=== PATIENT | female | born 1990 | race Two or more races ===

== ENCOUNTER 2016-09-19 04:25 | Inpatient (IN) | payer OTHER ==
[2016-09-19] MEDS: DEXTROSE 5%-LACTATED RINGERS 1,000 ML IV SCH (05:15)
[2016-09-19 05:29] LABS: BASOPHIL 0.4 % (0-2.0); EOSINOPHIL 0.5 % (0-4.5); MCH 28.4 pg (25.7-33.7); MCHC 32.9 g/dl (32.0-36.0); MEAN CELL VOLUME 86.3 fl (80-96); MEAN PLT VOLUME 9.1 fl (7.5-11.1); NEUTROPHILS 76.5 % (42.8-82.8); PLATELET COUNT 241 K/MM3 (134-434); RDW 14.5 % (11.6-15.6); WHITE BLOOD COUNT 13.8 K/mm3 (4.0-10.0)
[2016-09-19 05:41] VITALS: BMI 29.2
[2016-09-19 05:42] LABS: INR 0.95 (0.82-1.09); PROTHROMBIN TIME (PATIENT) 10.4 SEC (9.98-11.88)
[2016-09-19 05:45] LABS: ACTIVATED PTT 29.4 SECONDS (26.9-34.4)
[2016-09-19 05:48] LABS: CALCIUM 8.6 mg/dL (8.5-10.1); CREATININE 0.5 mg/dL (0.55-1.02)
[2016-09-19] MEDS ORDERED: PROMETHAZINE HCL 25 MG/1 ML VIAL IVPB ONE (06:00)
[2016-09-19] MEDS ORDERED: BUTORPHANOL TARTRATE 1 MG/ML VIAL IVPB ONE (06:00)
[2016-09-19 06:32] LABS: HIV 1 & 2 AB NEGATIVE; HIV 1 AGp24 NEGATIVE
[2016-09-19] MEDS ORDERED: OXYTOCIN 15 UNITS/ LR 250 ML 250 ML IVPB SCH (08:15)
--- NOTE | 2016-09-19 08:48 | HP ---
Past Medical History - Primary Care Physician PCP:: Rey Oviedo - Admission Chief Complaint: 25 yo P1 with at EGA 39w6d admitted with spontaneous early labor. 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: Alzheimer's, CVA, Dementia, Migraine, Multiple Sclerosis, Peripheral Neuropathy, Parkinson's, Seizure, Syncope, TIA, Vertigo, Other Cardiovascular: No: AFIB, Aneurysm, Aortic Insufficiency, Aortic Stenosis, CAD, CHF, Deep Vein Thrombosis, HTN, Hyperlipdemia, ME, Mitral Insufficiency, Mitral Stenosis, Murmur, Pulmonary Hypertension, Other Pulmonary: No: Asthma, Bronchitis, Cancer, COPD, O2 Dependent, Pneumonia, Previously Intubated, Pulmonary Embolus, Pulmonary Fibrosis, Sleep Apnea, Other Gastrointestinal: No: Ascites, Cancer, Constipation, Crohn's Disease, Diverticulitis, Diverticulosis, Esophageal Varices, Gastritis, GERD, GI Bleed, Hemorrhoids, Hiatal Hernia, Inflamatory Bowel Disease, Irritable Bowel Disease, Pancreatitis, Peptic Ulcer Disease, Ulcerative Colitis, Other Hepatobiliary: No: Cirrhosis, Cholelithiasis, Cholecystitis, Choledocholithiasis , Hepatitis A, Hepatitis B, Hepatitis C, Other Renal/: No: Renal Failure, Renal Inusuff, BPH, Cancer, Hematuria, Hemodialysis , Neurogenic Bladder, Renal Calculi, UTI, Other Reproductive: No: Ectopic , Endometriosis, Fibroids, PID, Polycystic Ovary Syndrome, Postmenopausal, Other ...: 2 ...Para: 1 ...Term: 1 ...: 0 ...Spon : 0 ...Induced : 0 ...Multiple Gestation: 0 ...LMP: 12/15/15 ... Weeks Gestation by Dates: 39.6 ...EDC by Dates: 09/20/16 Heme/Onc: No: Anemia, B12 Deficiency, Bleeding Disorder, Cancer, Current Chemotherapy, Current Radiation Therapy, Hemochromatosis, Hypercoaguable State, Myeloproliferative Synd, Sickle Cell Disease, Sickle Cell Trait, Thrombocytopenia, Other Infectious Disease: No: AIDS, C-Diff, Herpes Zoster, HIV, MRSA, STD's, Tuberculosis, VREF, Other Psych: No: Addictions, Anxiety, Bipolar, Depression, Panic, Psychosis, Schizophrenia, Other Musculoskeletal: No: Bursitis, Chronic low back pain, Hemiparesis, Hemiplegia, Osteoarthritis, Paraplegia, Other Rheumatology: No: Fibromyalgia, Gout, Lupus, Rheumatoid Arthritis, Sarcoidosis, Vasculitis, Other ENT: No: Allergic Rhinitis, Sinusitis, Other Endocrine: No: Ranjeet's Disease, Peng's Disease, Diabetes Insipidus, Diabetes Mellitus, Hyperparathyroidism, Hyperthyroidism, Hypothyroidism, Osteopenia, SIADH, Other Dermatology: No: Basal Cell, Cellulitis, Eczema, Melanoma, Psoriasis, Squamous Cell, Other - Past Surgical History Hx Myomectomy: No Hx Transabdominal Cerclage: No Additional Surgical History: Left breast fibroadenoma - Smoking History Smoking history: Never smoked Have you smoked in the past 12 months: No - Alcohol/Substance Use Hx Alcohol Use: No History of Substance Use: reports: None - Social History Usual Living Arrangement: Yes: With Spouse, With Child ADL: Independent History of Recent Travel: No Home Medications - Allergies Allergies/Adverse Reactions: Allergies Allergy/AdvReac Type Severity Reaction Status Date / Time No Known Allergies Allergy Verified 09/19/16 04:59 - Home Medications Home Medications: Ambulatory Orders Vitamins (Sjr) - 1 tab PO DAILY 09/19/16 Family Disease History - Family Disease History Family History: Unremarkable Review of Systems - Review of Systems Constitutional: reports: No Symptoms Eyes: reports: No Symptoms HENT: reports: No Symptoms Neck: reports: No Symptoms Cardiovascular: reports: No Symptoms Respiratory: reports: No Symptoms Gastrointestinal: reports: No Symptoms Genitourinary: reports: No Symptoms Breasts: reports: No Symptoms Reported Musculoskeletal: reports: No Symptoms Integumentary: reports: No Symptoms Neurological: reports: No Symptoms Endocrine: reports: No Symptoms Hematology/Lymphatic: reports: No Symptoms Psychiatric: reports: No Symptoms Pain Intensity: 5 Physical Exam - Maternity Vital Signs: Vital Signs Temperature 97.5 F L 09/19/16 08:00 Pulse Rate 79 09/19/16 08:00 Respiratory Rate 20 09/19/16 08:00 Blood Pressure 123/61 09/19/16 08:00 O2 Sat by Pulse Oximetry (%) Constitutional: Yes: Well Nourished, No Distress, Calm Eyes: Yes: WNL, Conjunctiva Clear HENT: Yes: WNL, Atraumatic, Normocephalic Neck: Yes: WNL, Supple, Trachea Midline Cardiovascular: Yes: WNL, Regular Rate and Rhythm Lungs: Clear to auscultation, Normal air movement Breast(s): Yes: WNL - Abdominal Exam/OB Fundal Height: 40 Number of Fetuses: Single Presentation: Vertex Contractions: Yes Regularity: Irregular Intensity: Mild/Mod Monitor Mode: External Heart Rate (range): 130 Heart Rate Location: Midline Category: I Accelerations: None (s/p Stadol) Decelerations: None - Vaginal Exam/OB Vaginal Bleediing: No Speculum Exam: No Dilatation (cm): 3 Effacement (%): 70 Amniotic Membrane Status: Intact Presentation: Vertex/Position Station: -2 (Adequate gynecoid pelvimetry) - Physical Exam Musculoskeletal: Yes: WNL Extremities: Yes: WNL Edema: No Integumentary: Yes: WNL Deep Tendon Reflex Grade: Normal +2 ...Motor Strength: WNL Psychiatric: Yes: WNL, Alert, Oriented - Labs Lab Results: CBC, BMP 09/19/16 05:10 09/19/16 05:10 Hemorrhage Risk Assessment - Risk Factors Medium Risk Factors: Yes: None High Risk Factors: Yes: None Risk Score: 1 Risk Level: Medium Risk Imaging - Results Ultrasound: Report Reviewed Assessment/Plan 25 yo P1 with at EGA 39w6d admitted with spontaneous early labor. Fetus requires no intervention. The pt is in spontaneous labor but with irregular contractions. The cervical dilation did not change since admission. Plan to start pitocin to augment contractions. The plan, risks, benefits, alternatives were discussed with the patient.
[2016-09-19] MEDS ORDERED: FENTANYL/BUPIVACAINE/NS/PF - PCEA - 50 ML DISP.SYRIN EP SCH (11:00)
--- NOTE | 2016-09-19 14:03 | PN ---
Ante-Partal Exam - Subjective Subjective: No complaints. FHR with several prolonged decels. Pt was given O2 mask. AROM was done with thick meconium noted. FSE placed, and pitocin turned off. Tried several different position changes. The pt is dilating quickly but now the FHR has minimal variability. Negative scalp stim. Vital Signs: Vital Signs Temperature 98.1 F 09/19/16 09:57 Pulse Rate 88 09/19/16 13:00 Respiratory Rate 20 09/19/16 13:00 Blood Pressure 114/57 09/19/16 13:00 O2 Sat by Pulse Oximetry (%) 100 09/19/16 13:00 Bleeding: No Headache: No Visual changes: No Right upper quadrant pain: No - Contractions Contractions: Yes Regularity: Regular Intensity: Unaware Monitor Mode: External - Exam during Labor Heart Rate: 145 Variability: Minimal Category: II Monitor Accelerations: Absent Monitor Decelerations: Variable (and early and prolonged) Exam: Vaginal Dilatation (cm): 7 Effacement (%): 90 Amniotic Membrane Status: Ruptured Amniotic Fluid: Meconium Stained Meconium Staining: Thick Presentation: Vertex Station: 0 - Intrapartum Hemorrhage Risk Medium Risk Factors: None High Risk Factors: None Risk Score: 0 Risk Level: Low Risk - Assessment/Plan Assessment/Plan: 25 yo P1 with non-reassuring FHT in active labor. I discussed the clinical situation with pt and decided to proceed with C/S. R, b, alt discussed.
[2016-09-19] MEDS ORDERED: IBUPROFEN 800 MG/8 ML IJ IVPB PRN (15:15)
[2016-09-19] MEDS ORDERED: METHYLERGONOVINE MALEATE 0.2 MG/1 ML AMP IM PRN (15:15)
[2016-09-19] MEDS ORDERED: ONDANSETRON 4 MG/2 ML VIAL IVPB PRN (15:27)
[2016-09-19] MEDS ORDERED: IBUPROFEN 600 MG TABLET (FP) PO PRN (15:27)
[2016-09-19] MEDS ORDERED: morphine SULFATE/Preservative Free 0.5 MG/ML (1cc Syringe) EP ONE (15:27)
--- NOTE | 2016-09-19 15:27 | PN ---
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
[2016-09-19 15:29] LABS: ARTERIAL BLD GAS O2 SATURATION 20.3 % (90-98.9); ARTERIAL BLOOD GAS HCO3 27.7 meq/L (22-26); ARTERIAL BLOOD GAS PO2 14.5 mmHg (80-100); ARTERIAL BLOOD GAS pH 7.32 (7.35-7.45)
[2016-09-19 15:30] LABS: ARTERIAL BLD GAS O2 SATURATION 71.1 % (90-98.9); ARTERIAL BLOOD GAS BASE EXCESS 0.6 meq/l (-2-2); ARTERIAL BLOOD GAS HCO3 25.5 meq/L (22-26); ARTERIAL BLOOD GAS pH 7.38 (7.35-7.45)
[2016-09-19 15:34] LABS: LPM/O2% 21%; PT. ON O2? NO; TYPE OF O2 ROOM AIR
[2016-09-19 15:36] LABS: ARTERIAL BLOOD GAS PO2 32.4 mmHg (80-100); LPM/O2% 21% ROOM AIR; PT. ON O2? NO
[2016-09-19] MEDS: OXYTOCIN 20 UNITS in 0.9% NS 1,000 ML IV SCH (16:19)
[2016-09-20] MEDS: OXYTOCIN 20 UNITS in 0.9% NS 1,000 ML IV SCH (00:04)
[2016-09-20] MEDS: IBUPROFEN 600 MG TABLET (FP) PO PRN ×3 (06:15→22:33)
[2016-09-20] MEDS: ACETAMINOPHEN 325 MG TABLET (FP) PO PRN ×3 (06:15→22:34)
[2016-09-20] MEDS: DEXTROSE 5%-LACTATED RINGERS 1,000 ML IV SCH (06:16)
[2016-09-20 08:24] LABS: BASOPHIL 0.2 % (0-2.0); EOSINOPHIL 0.1 % (0-4.5); MCH 28.8 pg (25.7-33.7); MEAN CELL VOLUME 87.1 fl (80-96); MEAN PLT VOLUME 8.6 fl (7.5-11.1); NEUTROPHILS 83.1 % (42.8-82.8); PLATELET COUNT 187 K/MM3 (134-434); RDW 14.2 % (11.6-15.6); WHITE BLOOD COUNT 17.4 K/mm3 (4.0-10.0)
[2016-09-20] MEDS: PRENATAL VITAMINS W/ FOLIC ACID TABLET (FP) PO SCH (09:12)
[2016-09-20] MEDS: ENOXAPARIN NA (PORCINE) 40 MG/0.4 ML DISP.SYRIN SQ SCH (09:13)
[2016-09-20] MEDS ORDERED: INFLUENZA VACCINE 45 MCG/0.5 ML (MDV 16-17) IM ONE (10:00)
[2016-09-20] MEDS ORDERED: INFLUENZA VACCINE 60 MCG/0.5 ML (P/F DISP.SYRIN 16-17) IM ONE (10:00)
--- NOTE | 2016-09-20 12:47 | PN ---
Progress Note (short form) - Note Progress Note: Anesthesia postop note 25 y/o F s/p epidural anesthesia for section, duramorph for postop pain POD#1, vss, aaox3, pain well controlled overnight, ambulating. No anesthesia complications.
[2016-09-20] MEDS ORDERED: BISACODYL 10 MG SUPP.RECT RC PRN (15:15)
[2016-09-20] MEDS: SIMETHICONE 80 MG TAB.CHEW (FP) PO PRN ×2 (15:29→22:34)
--- NOTE | 2016-09-20 19:53 | PN ---
Post Progress Note - Subjective Subjective: No complaints. Post Day: 1 Type of Delivery: Primary C/S Vital Signs: Vital Signs Temperature 98.2 F 09/20/16 14:00 Pulse Rate 105 H 09/20/16 14:00 Respiratory Rate 18 09/20/16 15:00 Blood Pressure 114/64 09/20/16 14:00 O2 Sat by Pulse Oximetry (%) 100 09/19/16 14:00 Breast Exam: Yes: Soft Uterus: Yes: Fundus Firm, Fundus below umbilicus, Non-tender Incision: Yes: Dressing dry and intact Abdomen/GI: Yes: Abdomen soft, Tolerating PO Lochia: Yes: Rubra Lochia, amount: Small Extremities: Yes: Calves non-tender, Edema Perineum: Yes: Intact Activity: Ambulating - Labs Labs: CBC WBC 17.4 K/mm3 (4.0-10.0) H 09/20/16 07:45 RBC 3.45 M/mm3 (3.60-5.2) L 09/20/16 07:45 Hgb 9.9 GM/dL (10.7-15.3) L D 09/20/16 07:45 Hct 30.1 % (32.4-45.2) L D 09/20/16 07:45 MCV 87.1 fl (80-96) 09/20/16 07:45 MCHC 33.0 g/dl (32.0-36.0) 09/20/16 07:45 RDW 14.2 % (11.6-15.6) 09/20/16 07:45 Plt Count 187 K/MM3 (134-434) D 09/20/16 07:45 MPV 8.6 fl (7.5-11.1) 09/20/16 07:45 Neutrophils % 83.1 % (42.8-82.8) H 09/20/16 07:45 Lymphocytes % 9.6 % (8-40) D 09/20/16 07:45 Monocytes % 7.0 % (3.8-10.2) 09/20/16 07:45 Eosinophils % 0.1 % (0-4.5) 09/20/16 07:45 Basophils % 0.2 % (0-2.0) 09/20/16 07:45 Assessment/Plan 25 yo P2 s/p primary LT C/S doing well. Continue routine postop care. instructions reviewed. Ambulation encouraged.
[2016-09-21] MEDS: IBUPROFEN 600 MG TABLET (FP) PO PRN ×3 (09:41→20:28)
[2016-09-21] MEDS: PRENATAL VITAMINS W/ FOLIC ACID TABLET (FP) PO SCH (09:41)
[2016-09-21] MEDS: oxyCODONE HCL 5 MG TABLET PO PRN ×3 (09:42→20:29)
[2016-09-21] MEDS: ENOXAPARIN NA (PORCINE) 40 MG/0.4 ML DISP.SYRIN SQ SCH (09:43)
--- NOTE | 2016-09-21 10:38 | PN ---
Post Progress Note - Subjective Subjective: No complaints. No nausea or vomiting, feels well. No fever or chills. Post Day: 2 Type of Delivery: Primary C/S Vital Signs: Vital Signs Temperature 98.4 F 09/20/16 22:00 Pulse Rate 97 H 09/20/16 22:00 Respiratory Rate 20 09/20/16 22:00 Blood Pressure 96/60 09/20/16 22:00 O2 Sat by Pulse Oximetry (%) 100 09/19/16 14:00 Breast Exam: Yes: Soft Uterus: Yes: Fundus Firm, Fundus below umbilicus, Non-tender Incision: Yes: Sutures intact Abdomen/GI: Yes: Abdomen soft, Passing flatus, Tolerating PO Lochia: Yes: Rubra Lochia, amount: Small Extremities: Yes: Calves non-tender, Edema Perineum: Yes: Intact Activity: Ambulating - Labs Labs: CBC WBC 17.4 K/mm3 (4.0-10.0) H 09/20/16 07:45 RBC 3.45 M/mm3 (3.60-5.2) L 09/20/16 07:45 Hgb 9.9 GM/dL (10.7-15.3) L D 09/20/16 07:45 Hct 30.1 % (32.4-45.2) L D 09/20/16 07:45 MCV 87.1 fl (80-96) 09/20/16 07:45 MCHC 33.0 g/dl (32.0-36.0) 09/20/16 07:45 RDW 14.2 % (11.6-15.6) 09/20/16 07:45 Plt Count 187 K/MM3 (134-434) D 09/20/16 07:45 MPV 8.6 fl (7.5-11.1) 09/20/16 07:45 Neutrophils % 83.1 % (42.8-82.8) H 09/20/16 07:45 Lymphocytes % 9.6 % (8-40) D 09/20/16 07:45 Monocytes % 7.0 % (3.8-10.2) 09/20/16 07:45 Eosinophils % 0.1 % (0-4.5) 09/20/16 07:45 Basophils % 0.2 % (0-2.0) 09/20/16 07:45 Assessment/Plan 25 yo P2 s/p primary LT C/S doing well. Continue routine postop care. instructions reviewed. Ambulation encouraged. Plan to d/c home tomorrow.
--- NOTE | 2016-09-21 15:13 | PATH ---
Surgical Pathology Report Patient Name: GOVIND BANKS [facility]. Rec. #: [id number] /Age/Gender: 1990 (Age: 25) / F Account: [id number] Location: [facility] OBS/FOAM CASTER Taken: 09/19/2016 Received: 09/20/2016 Reported: 09/21/2016 Physicians: Rey Oviedo M.D. Specimen(s) Received PLACENTA Clinical History 2 para 1 x139.6 weeks Final Diagnosis PLACENTA, DELIVERY: FOCALLY DISRUPTED THIRD TRIMESTER PLACENTA WITH ACUTE CHORIOAMNIONITIS, CIRCUMMARGINATE INSERTION OF MEMBRANES AND 3 VESSEL UMBILICAL CORD. Electronically Signed Nestor Jacobsen M.D. Gross Description The specimen is received fresh labeled placenta and is a 536 gram, 18 x 15 x 2 3 cm. placenta with attached membranes and umbilical cord. The attached membranes are glistening and mucoid and insert in a circummarginate manner up to 3 cm from the placental margin. The umbilical cord measures 24 cm. in length and averages 0.8 cm. in diameter. The cord inserts eccentrically, 3 cm. to the nearest margin. No true knots or strictures are identified. Cut surface of the umbilical cord reveals 3 vessels. The surface is dorsey-blue with minimal fibrin deposition and appropriate caliber vessels. The maternal surface is red-brown with focal defects. Sectioning reveals red-brown, spongy parenchyma. No lesions are identified. Housing Assistant Property Manager sections are submitted in three cassettes as follows: 1- membrane rolls and umbilical cord; 2-3- full thickness sections of placenta. ESCOBAR/09/20/2016 [facility]/09/20/2016
[2016-09-21] MEDS: SIMETHICONE 80 MG TAB.CHEW (FP) PO PRN ×2 (15:38→20:28)
[2016-09-21] MEDS: ACETAMINOPHEN 325 MG TABLET (FP) PO PRN (23:33)
[2016-09-22 07:08] LABS: BASOPHIL 0.3 % (0-2.0); MCH 29.1 pg (25.7-33.7); MCHC 33.3 g/dl (32.0-36.0); MEAN CELL VOLUME 87.2 fl (80-96); MEAN PLT VOLUME 8.5 fl (7.5-11.1); NEUTROPHILS 65.5 % (42.8-82.8); PLATELET COUNT 222 K/MM3 (134-434); RDW 14.8 % (11.6-15.6); WHITE BLOOD COUNT 9.9 K/mm3 (4.0-10.0)
[2016-09-22] MEDS: SIMETHICONE 80 MG TAB.CHEW (FP) PO PRN (09:25)
[2016-09-22] MEDS: ACETAMINOPHEN 325 MG TABLET (FP) PO PRN (09:25)
[2016-09-22] MEDS: IBUPROFEN 600 MG TABLET (FP) PO PRN (09:26)
[2016-09-22] MEDS: PRENATAL VITAMINS W/ FOLIC ACID TABLET (FP) PO SCH (09:26)
[2016-09-22] MEDS: ENOXAPARIN NA (PORCINE) 40 MG/0.4 ML DISP.SYRIN SQ SCH (09:26)
[2016-09-22] MEDS: oxyCODONE HCL 5 MG TABLET PO PRN (11:49)
[2016-09-22 12:17] VITALS: BP 117/62; PULSE 89; TEMP 97.7
--- NOTE | 2016-10-11 10:44 | OP ---
DATE OF OPERATION: 09/19/2016 PREOPERATIVE DIAGNOSIS: Intrauterine at estimated gestational age of 39 weeks 6 days, nonreassuring heart tracing. POSTOPERATIVE DIAGNOSIS: Intrauterine at estimated gestational age of 39 weeks 6 days, nonreassuring heart tracing, delivered. PROCEDURE: Primary low transverse section via Pfannenstiel skin incision. SURGEON: Rey Oviedo MD TRAINING AND DEVELOPMENT SPECIALIST: Ellen Rolon MD ANESTHESIA: Urbano Peng MD TYPE OF ANESTHESIA: Epidural. COMPLICATIONS: None. ESTIMATED BLOOD LOSS: 700 mL. URINE OUTPUT: 100 mL of clear urine at the end of the procedure. IV FLUIDS: 1000 mL crystalloid. PATHOLOGY: Placenta. FINDINGS: A live fetus in vertex presentation. Apgars 9/9. Meconium in amniotic fluid. Normal uterus, fallopian tubes, ovaries. DESCRIPTION OF PROCEDURE: The patient was brought to the OR with the IV running. She was placed on the surgical table in a sitting position. Adequate level of anesthesia was found. The patient was then prepped and draped in a usual sterile fashion. A Yang catheter was inserted inside the bladder and left to drain to gravity. A Pfannenstiel skin incision was made with a knife approximately 2 cm above the pubic symphysis. The incision was taken down to the level of fascia. The fascia was incised in the midline, and the incision was extended bilaterally using Singh scissors. The fascia was dissected away from the rectus muscles superiorly and inferiorly. The rectus muscles were in the midline bluntly. The peritoneum was identified and entered using Metzenbaum scissors. The peritoneal incision was extended superiorly and inferiorly. The bladder peritoneum was dissected away from the lower uterine segment sharply. The bladder was reflected downwards. The uterus was incised in the lower uterine segment. The uterine incision was extended transversely using bandage scissors. The baby was delivered from vertex presentation without complications. The baby was crying spontaneously. The umbilical cord was clamped and cut. The baby was handed to the awaiting scrap dealer. The placenta was removed manually without complications. The uterine cavity was cleared of all clot and debris using moist laparotomy laps. The uterine incision was repaired using a 0 Biosyn suture with a running and locking stitch. Good hemostasis was noted. The uterus incision was then imbricated using a secondary level of closure with 0 Biosyn suture. Once again, good hemostasis was noted. The bladder peritoneum was approximated using a 0 Biosyn suture. The operative site was irrigated using copious amounts of normal saline. Once the saline was aspirated, good hemostasis was confirmed. The peritoneum was then closed using a 2-0 chromic suture with a running stitch. The rectus muscles were approximated using several interrupted 2-0 chromic sutures. The fascia was closed using a 0 Vicryl suture with a running stitch. The subcutaneous adipose tissues were approximated to eliminate space. The skin was closed with a 4-0 Vicryl suture using a subcutaneous stitch. Sponge, lap, needle counts were correct. The patient tolerated the procedure well and was transferred to recovery room in stable condition. Marcia [id number]
== END 2016-09-22 14:00 | disposition home or self-care (01) | DRG 766 ==
LOC: JDEL 04:25 → JLDR 04:50 → UNDOADMIN 04:50 → JERBED 04:50 → J3W 16:45
PROVIDERS: ADMIT Obstetrics & Gynecology; ATTEND Obstetrics & Gynecology
PROC: 10D00Z1 Extraction of Products of Conception, Low, Open Approach (ICD-10-PCS; principal; 2016-09-19)
DX: O76 Abnormality in fetal heart rate and rhythm complicating labor and delivery (principal); Z3A.39 39 weeks gestation of pregnancy; Z37.0 Single live birth
CPT/HCPCS: 36415; 36600; 71020-TC; 80048; 82803; 85025; 85610; 85730; 86593; 86850; 86900; 86901; 87389; 88307-TC; 90686; G0008